=== PATIENT | female | born 1970 | race American Indian/Alaskan Native ===

== ENCOUNTER 2016-11-15 02:27 | Emergency (ER) | payer MEDICARE ==
[2016-11-15 03:17] LABS: Basophils % (Auto) 0.3 % (0.0-1.8); Eosinophils % (Auto) 1.4 % (0.0-4.3); Hematocrit 33.9 % (30.3-42.9); Hemoglobin 11.2 gm/dl (10.1-14.3); Mean Corpuscular HGB Conc 33 % (30-34); Mean Corpuscular Hemoglobin 30 pg (28-32); Mean Corpuscular Volume 92 fl (79-97); Platelet Count 290 K/mm3 (140-440); Red Cell Distribution Width 14.4 % (13.2-15.2); White Blood Count 7.3 K/mm3 (4.5-11.0)
[2016-11-15 03:20] LABS: BUN/Creatinine Ratio 23.33; Blood Urea Nitrogen 14 mg/dL (7-17); Calcium 10.4 mg/dL (8.4-10.2); Carbon Dioxide 24 mmol/L (22-30); Chloride 103.4 mmol/L (98-107); Glucose 97 mg/dL (65-100); Potassium 3.6 mmol/L (3.6-5.0); Sodium 139 mmol/L (137-145)
[2016-11-15 03:25] LABS: Anion Gap 15 mmol/L
[2016-11-15 09:29] VITALS: BP 160/97
--- NOTE | 2016-11-15 09:44 | Emergency Department Report ---
HPI - General Chief Complaint: Extremity Problem,Nontraumatic Time Seen by Provider: 11/15/16 06:51 - HPI HPI: Chief complaint: Leg swelling HPI: Patient complains of increased swelling and pain to her lower extremities over the last 5 days. Patient works at [employer] and is on her feet all day. Patient does not always wear her support stockings. Patient has a history of hypertension and is on Diovan 160/12.5, Norvasc 10, metformin and Januvia. Patient used to be on gabapentin for her diabetic neuropathy but was taken off by her doctor. Mode of arrival: [private car] Source: [Patient] Began: 5 days ago Duration: 5 days Context: No history of DVT or congestive heart failure Quality: Aching Severity: 8 out of 10 Improved with: Swelling improves with elevation and wearing her support hose Worsened with: Standing Associated signs and symptoms: No chest pain or shortness of breath. ED Past Medical Hx - Past Medical History Previous Medical History?: Yes Hx Hypertension: Yes Hx Diabetes: Yes ([id number]) Additional medical history: NEUROPATHY - Surgical History Past Surgical History?: Yes Additional Surgical History: UTERINE FIBROIDS - Medications Home Medications: Home Medications Medication Instructions Recorded Confirmed Last Taken Type Hydrochlorothiazide [HCTZ] 12.5 mg PO QDAY #30 capsule 11/15/16 Unknown Rx Sitagliptin Phosphate [Januvia] 100 mg PO QDAY 11/15/16 11/15/16 11/14/16 History Valsartan/Hydrochlorothiazide 1 tab PO BID 11/15/16 11/15/16 11/14/16 History [Diovan Hct 160-12.5 mg] amLODIPine [Norvasc] 10 mg PO DAILY 11/15/16 11/15/16 11/14/16 History metFORMIN [Glucophage] 500 mg PO BID 11/15/16 11/15/16 11/14/16 History ED Review of Systems ROS: Stated complaint: BILAT LEG/FEET PAIN / NO FEELING Other details as noted in HPI ROS Constitutional: No fever ENT: No uri symptoms Cardiovascular: No chest pain Respiratory: No sob or cough GI: No nausea vomiting or diarrhea : No dysuria frequency or urgency, Skin: No rash Neuro: No focal weakness Psych: No depression Stanford/lymph: edema Physical Exam - Physical Exam Vital Signs: Vital Signs 02/02/17 02/02/17 02:34 06:41 Temperature 98.2 F 97.8 F Pulse Rate 82 80 Respiratory 20 16 Rate Blood Pressure 187/115 Blood Pressure 166/80 [Left] O2 Sat by Pulse 97 96 Oximetry Physical Exam: GENERAL: The patient is an obese -La[place] female no acute distress. HEENT: Normocephalic. Atraumatic. Extraocular motions are intact. Patient has moist mucous membranes. NECK: Supple. No meningitic signs are noted. There is no adenopathy noted. CHEST/LUNGS: Clear to auscultation. There is no respiratory distress noted. HEART/CARDIOVASCULAR: Regular. There is no tachycardia. There is no gallop rub or murmur. ABDOMEN: Abdomen is soft, nontender. Patient has normal bowel sounds. There is no abdominal distention. SKIN: There is no rash. There is 1-2+ bilateral pedal edema. There is no diaphoresis. NEURO: The patient is awake, alert, and oriented. The patient is cooperative. The patient has no focal neurologic deficits. The patient has normal speech. MUSCULOSKELETAL: There is no tenderness or deformity. There is no limitation range of motion. There is no evidence of acute injury. ED Course Vital Signs 11/15/16 11/15/16 02:34 06:41 Temperature 98.2 F 97.8 F Pulse Rate 82 80 Respiratory 20 16 Rate Blood Pressure 187/115 Blood Pressure 166/80 [Left] O2 Sat by Pulse 97 96 Oximetry ED Medical Decision Making - Lab Data Result diagrams: 11/15/16 02:50 11/15/16 02:50 Laboratory Tests 11/15/16 02:50 NT-Pro-B Natriuret Pep 15.98 - Radiology Data Radiology results: report reviewed (bilateral lower extremity Dopplers were negative for DVT.) Critical care attestation.: If time is entered above; I have spent that time in minutes in the direct care of this critically ill patient, excluding procedure time. ED Disposition Clinical Impression: Dependent edema Disposition: DISCHARGED TO HOME OR SELFCARE Is pt being admited?: No Does the pt Need Aspirin: No Condition: Stable Instructions: Leg Edema (ED) Prescriptions: Hydrochlorothiazide [HCTZ] 12.5 mg PO QDAY #30 capsule Referrals: PRIMARY CARE, [Primary Care Provider] - 3-5 Days Forms: Work/School Release Form(ED) Time of Disposition: 09:28
== END 2016-11-15 09:42 | disposition home or self-care (01) ==
LOC: ED 02:27
DX: R60.9 Edema, unspecified (principal); I10 Essential (primary) hypertension; E11.9 Type 2 diabetes mellitus without complications; D25.9 Leiomyoma of uterus, unspecified
CPT/HCPCS: 36415; 80048; 83880; 85025; 93970

== ENCOUNTER 2017-02-08 08:37 | Outpatient (CLI) | payer MEDICARE ==
--- NOTE | 2017-02-08 09:59 | Ultrasound Report ---
Pelvic ultrasound: Menorrhagia and intermittent vaginal hemorrhage. Endovaginal and transabdominal imaging. A uterus is anteverted and measures 7.6 x 9.3 x 16 cm. The myometrium is relatively homogeneous except for 3 discrete masses in the fundus with measurements of 2, 3.8, and 4.6 cm respectively. One of the masses may be submucous in position. The endometrium is homogeneous but thickened measuring 31 mm. The patient is currently midcycle. Neither ovary is identified by either approach. No free fluid. Impressions: 1. Multiple uterine fibroids. One of these may be submucous in location. 2. Nonspecific endometrial thickening. The patient is mid cycle but this is more than expected. 3. Nonvisualized ovaries.
== END 2017-02-08 08:38 | disposition home or self-care (01) ==
LOC: US 08:37
PROVIDERS: ATTEND Family Medicine
DX: D25.9 Leiomyoma of uterus, unspecified (principal); N85.4 Malposition of uterus
CPT/HCPCS: 76830; 76856

== ENCOUNTER 2017-04-18 13:13 | Outpatient (CLI) | payer MEDICARE ==
[~2017-04-18 13:13] MED LIST: SUBLIMAZE ONE; VERSED ONE
--- NOTE | 2017-04-19 14:57 | Mammography Report ---
BILATERAL DIGITAL SCREENING MAMMOGRAM with CAD: 04/18/17 13:13:00 CLINICAL: Routine screening. COMPARISON:None available. However she apparently had a mammogram approximately 3 years ago in [place], [place]. FINDINGS: The breasts are almost entirely fatty. No mass, architectural distortion or suspicious calcifications. IMPRESSION: No mammographic evidence of malignancy. BI-RADS CATEGORY: 2 -- Benign RECOMMENDATION: Routine mammographic screening in one year. We will attempt to obtain a comparison mammogram from [place], [place]. COMMENT: Patient follow-up letters are generated by our [employer] application.
--- NOTE | 2017-04-19 16:02 | Magnetic Resonance Report ---
MRI LEFT KNEE WITHOUT CONTRAST: 04/18/17 CLINICAL: Left knee pain. TECHNIQUE: Sagittal proton density fat sat and T2, coronal T2 fat sat and proton density and axial gradient T2*sequences on a 1.5 Renee magnet. FINDINGS: The menisci are intact. The anterior cruciate ligament is intact but fluid signal tracks along the ligament and there is marrow edema edema of the central tibia posterior to the anterior cruciate insertion. The bone marrow is otherwise normal. The posterior cruciate ligament is intact. No fracture. There is a small knee joint effusion. Mild thinning of the patellar cartilage and a subchondral cyst of the superior patella. The patellar retinaculum and tendon are intact. Infrapatellar and prepatellar anterior subcutaneous soft tissue edema. Several small cysts are identified tracking along with the popliteal vessels. The largest measures approximately 1 cm. No Morton's cyst. IMPRESSION: 1. No ligamentous or meniscal injury. 2. Marrow edema the central tibia is a degenerative phenomenon. 3. 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 4. Several small ganglion cysts tracking along the popliteal vessels. These may or may not be symptomatic.
== END 2017-04-18 13:14 | disposition home or self-care (01) ==
LOC: SPVWC 13:13
PROVIDERS: ATTEND Family Medicine
DX: Z12.31 Encounter for screening mammogram for malignant neoplasm of breast (principal); M25.862 Other specified joint disorders, left knee; M22.42 Chondromalacia patellae, left knee; M17.12 Unilateral primary osteoarthritis, left knee; I10 Essential (primary) hypertension; F03.90 Unspecified dementia, unspecified severity, without behavioral disturbance, psychotic disturbance, mood disturbance, and anxiety
CPT/HCPCS: 73721; G0202; 77067; J2250; J3010

== ENCOUNTER 2019-12-18 15:13 | Outpatient (CLI) | payer OTHER | END 2019-12-18 15:14 | disposition home or self-care (01) | LOC: MAMMO 15:13 | PROVIDERS: ATTEND Family Medicine | DX: Z12.31 Encounter for screening mammogram for malignant neoplasm of breast (principal) | CPT/HCPCS: 77067 ==